=== PATIENT | female | born 1970 | race Caucasian/White ===

== ENCOUNTER 2023-03-24 13:44 | Outpatient (OUT) | payer BC, SELFPAY ==
--- NOTE | 2023-03-24 | MM_ITS ---
Patient: BILL TURNER Exam Date: 03/24/2023 : 1970 Gender:F Ordering : DR LEBRON ROMAN M.D. Admission #: [id number] Family : Order #: [id number] CLICK HERE TO VIEW EXAM RADIOLOGY REPORT PROCEDURE: MM TOMOSYNTHESIS SCREENING BI COMPARISON: MG MAMM SCREEN 3D KATIA CAD, 03/17/2021. MG MAMM SCREEN 3D KATIA CAD, 03/18/2022. INDICATIONS: Screening Mammogram Calculator Name NCI Breast Cancer Risk Assessment Tool 5 Year Breast Cancer Risk 0.90% Lifetime Breast Cancer Risk 7.90% Personal Breast Cancer No Personal Ovarian Cancer No Treatments None Family Cancers Grandmother-paternal with bladder cancer at age 80. LOCATION: [facility] BREAST COMPOSITION: Extremely dense, which lowers the sensitivity of mammography. FINDINGS: DIAGNOSTIC CATEGORY 1--NEGATIVE. NO CHANGE FROM COMPARISON ASSESSMENT. Scattered benign-appearing lymph nodes are present. RIGHT BREAST: No significant suspicious finding. LEFT BREAST: No significant suspicious finding. RECOMMENDATIONS: ROUTINE MAMMOGRAM AND CLINICAL EVALUATION IN 12 MONTHS. PLEASE NOTE: A NORMAL MAMMOGRAM DOES NOT EXCLUDE THE POSSIBILITY OF BREAST CANCER. A CLINICALLY SUSPICIOUS PALPABLE LUMP SHOULD BE BIOPSIED. Dictated by: Andrzej Xie MD on 03/27/2023 at 07:58 Approved by: Andrzej Xie MD on 03/27/2023 at 07:59
== END 2023-03-24 13:45 | disposition home or self-care (01) ==
LOC: MAMMO 13:44
PROVIDERS: PCP Family Medicine; Visit Provider Family Medicine
DX: Z12.31 Encounter for screening mammogram for malignant neoplasm of breast (principal); Z80.52 Family history of malignant neoplasm of bladder
CPT/HCPCS: 77063; 77067

== ENCOUNTER 2024-03-27 07:04 | Outpatient (OUT) | payer BC, SELFPAY ==
--- NOTE | 2024-03-27 | MM_ITS ---
Patient Name: BILL TURNER MR#: [id number] : 1970 Exam Date: 03/27/2024 Ordering Doctor: DR ALEX MarinOLOGY REPORT PROCEDURE: MM TOMOSYNTHESIS SCREENING BI COMPARISON: MM TOMOSYNTHESIS SCREENING BI, 03/24/2023. MG MAMM SCREEN 3D KATIA CAD, 03/18/2022. INDICATIONS: Screening mammography Calculator Name NCI Breast Cancer Risk Assessment Tool 5 Year Breast Cancer Risk 0.90% Lifetime Breast Cancer Risk 7.80% Personal Breast Cancer No Personal Ovarian Cancer No Treatments None Family Cancers Grandmother-paternal with bladder cancer at age 80. LOCATION: [facility] BREAST COMPOSITION: The breasts are extremely dense, which lowers the sensitivity of mammography. FINDINGS: DIAGNOSTIC CATEGORY 1--NEGATIVE. NO CHANGE FROM COMPARISON ASSESSMENT. Scattered benign-appearing calcifications are present. Scattered benign-appearing lymph nodes are present. RIGHT BREAST: No significant suspicious finding. LEFT BREAST: No significant suspicious finding. RECOMMENDATIONS: ROUTINE MAMMOGRAM AND CLINICAL EVALUATION IN 12 MONTHS. PLEASE NOTE: A NORMAL MAMMOGRAM DOES NOT EXCLUDE THE POSSIBILITY OF BREAST CANCER. A CLINICALLY SUSPICIOUS PALPABLE LUMP SHOULD BE BIOPSIED. Dictated by: Andrzej Xie MD on 03/27/2024 at 08:51 Approved by: Andrzej Xie MD on 03/27/2024 at 08:52
== END 2024-03-27 07:05 | disposition home or self-care (01) ==
LOC: MAMMO 07:04
PROVIDERS: PCP Family Medicine; Visit Provider Specialist
DX: Z12.31 Encounter for screening mammogram for malignant neoplasm of breast (principal); Z80.52 Family history of malignant neoplasm of bladder
CPT/HCPCS: 77063; 77067

== ENCOUNTER 2024-05-04 10:56 | Outpatient (OUT) | payer BC, SELFPAY ==
--- OUTSIDE RECORDS SUMMARY | 2024-05-04 11:00 | XMS_ITS | CCD ---
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 diarrhea, nausea and vomiting. Musculoskeletal: Positive for arthralgias, gait problem and joint swelling. Skin: Negative for rash. Objective Physical Exam Constitutional: General: She is not in acute distress. Appearance: She is well-developed. She is obese. HENT: Head: Normocephalic and atraumatic. Eyes: General: No scleral icterus. Conjunctiva/sclera: Conjunctivae normal. Cardiovascular: Rate and Rhythm: Normal rate and regular rhythm. Heart sounds: Normal heart sounds. No murmur heard. Pulmonary: Effort: Pulmonary effort is normal. No respiratory distress. Breath sounds: Normal breath sounds. No wheezing, rhonchi or rales. Musculoskeletal: Right knee: Swelling and effusion present. No erythema, ecchymosis or crepitus. Decreased range of motion. Tenderness present over the lateral joint line (Mild). No LCL laxity, MCL laxity, ACL laxity or PCL laxity. Normal patellar mobility. Normal pulse. Instability Tests: Anterior drawer test negative. Posterior drawer test negative. Medial Lizandro test positive. Lateral Lizandro test negative. Comments: Pain with valgus stress of right knee Skin: General: Skin is warm and dry. Neurological: General: No focal deficit present. Mental Status: She is alert and oriented to person, place, and time. Gait: Gait abnormal. Psychiatric: Mood and Affect: Mood normal. Behavior: Behavior normal. Assessment/Plan Diagnoses and all orders for this visit: Primary osteoarthritis of right knee - predniSONE (Deltasone) 10 MG tablet; Take 1 tablet (10 mg) by mouth 2 (two) times a day for 5 days, THEN 1 tablet (10 mg) Daily for 5 days. Take with food. X-ray images reviewed and discussed with patient. Advised of significant medical compartment narrowing. Start Prednisone as prescribed, take with food. No other NSAIDs while on the steroid. Tylenol ok prn. Effusion of right knee Rest, elevate when possible. No bike riding until pain and swelling are improved. TERRY wrap reapplied, N/V status intact after placement. Encouraged her to continue with TERRY or use a knee sleeve for compression. If no improvement with the above, would plan to order MRI to r/o MCL or meniscal injury/tear. Pt voiced understanding. UC note from last night reviewed prior to today's visit. No follow-ups on file. documented in this encounter [facility] Evaluation note Note Date & Type Note Facility Evaluation note Diagnosis Primary osteoarthritis of right knee- Primary Effusion of right knee documented in this encounter [facility] Evaluation note Note Date & Type Note Facility Evaluation note Diagnosis Wellness examination- Primary Primary insomnia Persistent disorder of initiating or maintaining sleep Slow transit constipation Irregular menses Irregular menstrual cycle Menorrhagia with irregular cycle Obesity (BMI 30.0-34.9) Attention deficit hyperactivity disorder, predominantly inattentive type (CMS/HCC) Bipolar affective disorder, remission status unspecified (CMS/HCC) Fibrocystic breast changes, unspecified laterality Screening for cholesterol level documented in this encounter [facility] Summary Purpose Family History No Family History Records FoundNo Family History Records Found Advance Directives No Advanced Directives Records FoundNo Advanced Directives Records Found Additional Source Comments INFORMATION SOURCE (unrecogn ized section and content) DATE CREATED AUTHOR 03/22/2022 [facility] DATE CREATED AUTHOR AUTHOR'S ORGANIZ ATION 05/01/[address] [facility] d[facility] Specialists [facility] Care Teams (unrecognized sec tion and content) Botany Technician Relationship Specialty Start Date End Date Mary Roman MD [address] [place] [address] PCP - General 04/19/23 Efren Looney MD [address] [place] [address] PCP - [place] [employer] 11/11/23 Botany Technician Relationship Specialty Start Date End Date Mary Roman MD [address] [place] [address] PCP - General 04/19/23 Efren Looney MD [address] [place] [address] PCP - [place] [employer] 11/11/23 Botany Technician Relationship Specialty Start Date End Date Mary Roman MD [address] [place] [address] PCP - General 04/19/23 Efren Looney MD [address] [place] [address] PCP - [place] [employer] 11/11/23 Botany Technician Relationship Specialty Start Date End Date Mary Roman MD [address] [place] [address] PCP - General 04/19/23 Efren Looney MD [address] [place] [address] PCP - [place] [employer] 6/1/24 FOR RECORDS PERTAINING TO PATIENTS WHO ARE OR HAVE BEEN ENROLLED IN A CHEMICAL DEPENDENCY/SUBSTANCEABUSE PROGRAM, SOME INFORMATION MAY BE OMITTED. This clinical summary was aggregated from multiple sources. Caution should be exercised in using it in the provision of clinical care. This summary normalizes information from multiple sources, and as a consequence, information in this document may materially change the coding, format and clinical context of patient data. In addition, data may be omitted in some cases. CLINICAL DECISIONS SHOULD BE BASED ON THE PRIMARY CLINICAL RECORDS. [facility]. provides no warranty or guarantee of the accuracy or completeness of information in this document.
[2024-05-04 11:13] LABS: Basophils Absolute Auto 0.1 10^3/uL (0.0-0.1); Eosinophils Absolute Auto 0.4 10^3/uL (0.0-0.7); Eosinophils Percent Auto 5.8 % (0.9-7.0); Hematocrit 37.4 % (36.0-48.0); Hemoglobin 11.5 g/dL (12.0-16.0); Immature Granulocytes Abs Auto 0.01 10^3/uL (0.00-0.03); Immature Granulocytes Pct Auto 0.2 % (0.0-0.5); Lymphocytes Absolute Auto 1.9 10^3/uL (1.2-3.8); Lymphocytes Percent Auto 31.2 % (20.5-60.0); Mean Corpuscular HGB Conc 30.7 g/dL (29.9-35.2); Mean Corpuscular Hemoglobin 23.7 pg (26.7-34.0); Mean Platelet Volume 9.1 fL (9.5-13.5); Monocytes Absolute Auto 0.4 10^3/uL (0.3-0.8); Monocytes Percent Auto 6.4 % (1.7-12.0); Neutrophils Absolute Auto 3.4 10^3/uL (1.4-6.5); Neutrophils Percent Auto 55.4 % (43.0-75.0); Platelet Count 313 10^3/uL (150-450); Red Blood Count 4.86 10^6/uL (4.20-5.40); Red Cell Distribution Width 17.2 % (11.0-15.0); White Blood Count 6.1 10^3/uL (4.0-11.0)
[2024-05-04 11:39] LABS: Alanine Aminotransferase 26 U/L (14-59); Albumin Level 3.5 g/dL (3.4-5.0); Alkaline Phosphatase 79 U/L (46-116); Anion Gap 14.3; Aspartate Amino Transferase 18 U/L (15-37); BUN Creatinine Ratio 9.4; Bilirubin Total 0.4 mg/dL (0.2-1.0); Calcium 8.6 mg/dL (8.5-10.1); Chloride 104 mmol/L (98-107); Chol HDL Ratio 2.6; Cholesterol 207 mg/dL (<=200); Estimated GFR (African America >60 (>=60 mL/min/1.73m^2); Estimated GFR (Non-African Ame 54 (>=60 mL/min/1.73m^2); Globulin 3.6 g/dL; Glucose 103 mg/dL (74-106); HDL Cholesterol 81 mg/dL (40-60); Potassium 4.3 mmol/L (3.5-5.1); Sodium 140 mmol/L (136-145); Total Protein 7.1 g/dL (6.4-8.2); Triglycerides 60 mg/dL (<=150)
== END 2024-05-04 10:57 | disposition home or self-care (01) ==
LOC: LAB 10:58
PROVIDERS: PCP Family Medicine; Visit Provider Physician Assistant
DX: Z00.00 Encounter for general adult medical examination without abnormal findings (principal); E66.811 Obesity, class 1; Z13.220 Encounter for screening for lipoid disorders
CPT/HCPCS: 36415; 80053; 80061; 85025

== ENCOUNTER 2024-06-08 10:59 | Outpatient (OUT) | payer BC, SELFPAY ==
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
[2024-06-08 13:21] LABS: Thyroid Stimulating Hormone 39.484 uIU/mL (0.358-3.740)
[2024-06-09 09:07] LABS: DHEA-Sulfate 38.4 ug/dL (41.2-243.7)
[2024-06-11 13:08] LABS: Free Testosterone(Direct) 0.4 pg/mL (0.0-4.2); Testosterone <3 ng/dL (4-50)
== END 2024-06-08 11:00 | disposition home or self-care (01) ==
PROVIDERS: PCP Family Medicine; Visit Provider Specialist
DX: E34.9 Endocrine disorder, unspecified (principal); Z13.29 Encounter for screening for other suspected endocrine disorder
CPT/HCPCS: 36415; 82533; 82627; 84402; 84403; 84443

== ENCOUNTER 2025-03-28 06:56 | Outpatient (OUT) | payer BC, SELFPAY ==
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
--- NOTE | 2025-03-28 07:20 | MM_ITS ---
Patient Name: BILL TURNER MR#: [id number] : 1970 Exam Date: 03/28/2025 Ordering Doctor: [facility] REPORT PROCEDURE: MM TOMOSYNTHESIS SCREENING BI COMPARISON: MM TOMOSYNTHESIS SCREENING BI, 03/27/2024. MM TOMOSYNTHESIS SCREENING BI, 03/24/2023. MG MAMM SCREEN 3D KATIA CAD, 03/18/2022. MG MAMM KATIA SCRN W CAD DIG, 10/07/2013. INDICATIONS: Screening Calculator Name NCI Breast Cancer Risk Assessment Tool 5 Year Breast Cancer Risk 1.00% Lifetime Breast Cancer Risk 7.70% Personal Breast Cancer No Personal Ovarian Cancer No Treatments None Family Cancers Grandmother-paternal with bladder cancer at age 80. LOCATION: [facility] BREAST COMPOSITION: The breasts are extremely dense, which lowers the sensitivity of mammography. RIGHT BREAST: No significant suspicious finding. Benign-appearing calcifications are present paired LEFT BREAST: No significant suspicious finding. FINDINGS: DIAGNOSTIC CATEGORY 2--BENIGN FINDING. NO CHANGE FROM COMPARISON. RECOMMENDATIONS: ROUTINE MAMMOGRAM AND CLINICAL EVALUATION IN 12 MONTHS. Dictated by: Kavin Bates MD on 03/28/2025 at 12:15 Approved by: Kavin Bates MD on 03/28/2025 at 12:17
== END 2025-03-28 06:57 | disposition home or self-care (01) ==
LOC: MAMMO 06:57
PROVIDERS: PCP Family Medicine; Visit Provider Specialist
DX: Z12.31 Encounter for screening mammogram for malignant neoplasm of breast (principal); Z80.52 Family history of malignant neoplasm of bladder
CPT/HCPCS: 77063; 77067